=== PATIENT | male | born 1980 | race Two or more races ===

== ENCOUNTER 2019-06-14 13:03 | Emergency (ER) | payer OTHER ==
[2019-06-14 13:12] VITALS: BMI 28.5
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
[2019-06-14 16:18] LABS: BASO % 0.4 % (0-2.0); EOS % 0.4 % (0-4.5); HEMOGLOBIN 15.8 GM/dL (11.7-16.9); MCH 32.1 pg (25.7-33.7); MCHC 34.4 g/dl (32.0-35.9); MEAN CELL VOLUME 93.3 fl (80-96); MEAN PLT VOLUME 7.7 fl (7.5-11.1); MONO % 11.8 % (3.8-10.2); NEUT % 50.4 % (42.8-82.8); PLATELET COUNT 339 K/MM3 (134-434); RBC 4.93 M/mm3 (4.00-5.60); RDW 13.4 % (11.9-15.9); WHITE BLOOD COUNT 9.1 K/mm3 (4.0-10.0)
[2019-06-14 16:38] LABS: ALBUMIN 4.4 g/dl (3.4-5.0); BILIRUBIN,TOTAL 0.3 mg/dL (0.2-1); BLOOD UREA NITROGEN 14.9 mg/dL (7-18); CALCIUM 9.5 mg/dL (8.5-10.1); CREATININE 0.9 mg/dL (0.55-1.3); POTASSIUM 4.3 mmol/L (3.5-5.1); TOT PROT 7.7 g/dl (6.4-8.2)
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
[2019-06-14 18:21] VITALS: BP 124/77; PULSE 71; TEMP 97.3
== END 2019-06-14 18:22 | disposition home or self-care (01) ==
LOC: JER 13:03
DX: R10.10 Upper abdominal pain, unspecified (principal); V49.49XA Driver injured in collision with other motor vehicles in traffic accident, initial encounter; Y93.89 Activity, other specified; Y92.410 Unspecified street and highway as the place of occurrence of the external cause
CPT/HCPCS: 36415; 71045-TC-FY; 71101-TC-RT-FY; 72125-TC; 72131-TC; 73562-TC-LT-FY; 80053; 85025; 99282-25

== ENCOUNTER 2019-07-06 10:02 | Emergency (ER) | payer OTHER ==
[2019-07-06 10:16] VITALS: BMI 27.6
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
[2019-07-06 11:29] LABS: BASO % 0.6 % (0-2.0); EOS % 1.8 % (0-4.5); HEMOGLOBIN 15.9 GM/dL (11.7-16.9); LYMPH % 20.2 % (8-40); MCH 32.1 pg (25.7-33.7); MCHC 34.5 g/dl (32.0-35.9); MEAN CELL VOLUME 93.1 fl (80-96); MEAN PLT VOLUME 7.7 fl (7.5-11.1); MONO % 11.9 % (3.8-10.2); NEUT % 65.5 % (42.8-82.8); PLATELET COUNT 345 K/MM3 (134-434); RBC 4.94 M/mm3 (4.00-5.60); RDW 13.2 % (11.9-15.9); WHITE BLOOD COUNT 6.7 K/mm3 (4.0-10.0)
[2019-07-06 11:58] LABS: ALBUMIN 4.2 g/dl (3.4-5.0); BILIRUBIN,TOTAL 0.2 mg/dL (0.2-1); BLOOD UREA NITROGEN 12.8 mg/dL (7-18); CALCIUM 9.6 mg/dL (8.5-10.1); CREATININE 0.9 mg/dL (0.55-1.3); POTASSIUM 3.8 mmol/L (3.5-5.1); TOT PROT 7.6 g/dl (6.4-8.2)
[2019-07-06] MEDS ORDERED: KETOROLAC TROMETHAMINE 15 MG/ML VIAL IVPUSH ONE (11:58)
[2019-07-06] MEDS ORDERED: PANTOPRAZOLE SODIUM 40 MG VIAL IVPUSH ONE (11:58)
[2019-07-06] MEDS ORDERED: FAMOTIDINE 20 MG/50 ML IVPB 20 MG/50 ML MG IVPB ONE (11:59)
[2019-07-06] MEDS ORDERED: PANTOPRAZOLE SODIUM 40 MG/100 ML BAG IVPB ONE (12:03)
[2019-07-06 13:14] VITALS: BP 129/72; PULSE 69; TEMP 98.6
--- NOTE | 2019-07-06 13:41 | EKG ---
Test Reason : Blood Pressure : / mmHG Vent. Rate : 092 BPM Atrial Rate : 092 BPM P-R Int : 154 ms QRS Dur : 094 ms QT Int : 344 ms P-R-T Axes : 037 029 023 degrees QTc Int : 425 ms NORMAL SINUS RHYTHM NON-SPECIFIC INTRA-VENTRICULAR CONDUCTION DELAY NO PREVIOUS ECGS AVAILABLE Confirmed by MARILOU NIX MD ([id number]) on 07/06/2019 1:41:19 PM Referred By: Confirmed By:MARILOU NIX MD
== END 2019-07-06 13:10 | disposition home or self-care (01) ==
LOC: JER 10:02
PROC: 3E033GC Introduction of Other Therapeutic Substance into Peripheral Vein, Percutaneous Approach (ICD-10-PCS; principal; 2019-07-06)
PROC: 3E033GC Introduction of Other Therapeutic Substance into Peripheral Vein, Percutaneous Approach (ICD-10-PCS; 2019-07-06)
PROC: 3E0333Z Introduction of Anti-inflammatory into Peripheral Vein, Percutaneous Approach (ICD-10-PCS; 2019-07-06)
DX: K30 Functional dyspepsia (principal)
CPT/HCPCS: 36415; 80053; 82550; 83690; 84484; 85025; 93005; 93010; 99283-25

== ENCOUNTER 2020-12-02 09:04 | Emergency (ER) | payer OTHER ==
[2020-12-02 09:08] VITALS: BMI 28.5
[2020-12-02] MEDS ORDERED: MAG HYDROX/AL HYDROX/SIMETH 30 ML UNIT-DOSE CUP PO ONE (09:11)
[2020-12-02] MEDS ORDERED: PANTOPRAZOLE SODIUM 40 MG VIAL IVPUSH ONE (09:11)
[2020-12-02] MEDS ORDERED: MAG HYDROX/AL HYDROX/SIMETH 30 ML UNIT-DOSE CUP ONE (09:16)
[2020-12-02] MEDS ORDERED: PANTOPRAZOLE SODIUM 40 MG VIAL ONE (09:18)
[2020-12-02 09:37] LABS: BASO % 0.7 % (0-2.0); EOS % 2.2 % (0-4.5); HEMATOCRIT 45.9 % (35.4-49); LYMPH % 27.9 % (8-40); MCH 33.5 pg (25.7-33.7); MCHC 34.9 g/dl (32.0-35.9); MEAN CELL VOLUME 95.9 fl (80-96); MEAN PLT VOLUME 7.6 fl (7.5-11.1); MONO % 16.6 % (3.8-10.2); NEUT % 52.6 % (42.8-82.8); PLATELET COUNT 291 K/MM3 (134-434); RBC 4.79 M/mm3 (4.00-5.60); RDW 13.3 % (11.9-15.9); WHITE BLOOD COUNT 7.2 K/mm3 (4.0-10.0)
[2020-12-02 10:02] LABS: ALBUMIN 4.4 g/dl (3.4-5.0); BLOOD UREA NITROGEN 9.8 mg/dL (7-18)
[2020-12-02 10:05] LABS: CREATININE 0.9 mg/dL (0.55-1.3)
[2020-12-02 10:06] LABS: BILIRUBIN,TOTAL 0.5 mg/dL (0.2-1); TOT PROT 7.8 g/dl (6.4-8.2)
[2020-12-02 10:09] LABS: CALCIUM 9.3 mg/dL (8.5-10.1)
[2020-12-02 10:58] VITALS: BP 128/74; PULSE 78; TEMP 98
== END 2020-12-02 10:58 | disposition home or self-care (01) ==
LOC: JER 09:04
PROC: 3E033GC Introduction of Other Therapeutic Substance into Peripheral Vein, Percutaneous Approach (ICD-10-PCS; principal; 2020-12-02)
DX: K21.9 Gastro-esophageal reflux disease without esophagitis (principal)
CPT/HCPCS: 36415; 80053; 83690; 85025; 99284-25